=== PATIENT | female | born 1990 | race Hispanic/Latino ===

== ENCOUNTER 2018-04-01 00:47 | Emergency (ER) | payer OTHER ==
[~2018-04-01] VITALS: Ht 172.7 cm; Wt 97.5 kg
[2018-04-01] MEDS ORDERED: PREDNISONE 20 MG TAB PO ONE (01:15)
[2018-04-01] MEDS ORDERED: TETRACAINE HCL 0.5% OPTH SOLN 4 ML BTL OP ONE (01:15)
[2018-04-01] MEDS ORDERED: FLUORESCEIN SOD(OPTH) 1 MG STRP OP ONE (01:15)
[2018-04-01] MEDS ORDERED: DIPHENHYDRAMINE HCL 25 MG CAP PO ONE (01:15)
[2018-04-01] MEDS ORDERED: ERYTHROMYCIN (OPTH) 3.5 GM OINT OP ONE (01:15)
[2018-04-01] MEDS ORDERED: SODIUM CHLORIDE FLUSH 10 ML SYR IV ONE (01:15)
[2018-04-01] MEDS ORDERED: EYE IRRIGATION (OPTH) 120 ML BTL ONE (01:19)
--- NOTE | 2018-04-01 01:30 | NUR ---
VISUAL ACUITY PERFORMED, 20/20 TO BOTH EYES
--- NOTE | 2018-04-01 01:35 | NUR ---
ER AT BEDSIDE, TETRACAINE APPLIED TO EYE, EYE EXAM PERFORMED BY ER
== END 2018-04-01 01:49 | disposition home or self-care (01) ==
LOC: ER 00:47
DX: H10.12 Acute atopic conjunctivitis, left eye (principal); S05.02XA Injury of conjunctiva and corneal abrasion without foreign body, left eye, initial encounter
CPT/HCPCS: 99283; J7030; J7512